=== PATIENT | female | born 1940 | race Caucasian/White ===

== ENCOUNTER 2019-06-05 14:04 | Emergency (ER) | payer OTHER ==
[~2019-06-05] VITALS: Ht 152.4 cm; Wt 68.0 kg
[2019-06-05] MEDS ORDERED: NITROGLYCERIN0.4 MG SL (14:29)
[2019-06-05] MEDS ORDERED: XARELTO1 EACH PO (14:29)
[2019-06-05] MEDS ORDERED: DUTOPROL 100-11 EACH PO (14:31)
== END 2019-06-05 19:25 | disposition home or self-care (01) ==
LOC: ER 14:04 → CPU-OBS 15:21 → ER 15:21
DX: R07.89 Other chest pain (principal)